=== PATIENT | female | born 1975 | race Caucasian/White ===

== ENCOUNTER → 2017-10-22 | Outpatient (CLI) | payer OTHER, BC ==
[2015-03-22 07:55] VITALS: BP 92/51
[~2017-10-22] MED LIST: DOCU-109 PO; GABA-585 PO; OMEP20CA9 PO
--- NOTE | 2017-10-22 16:50 | RAD ---
History: Mass right breast. Relative benefits risks and alternatives to the procedure were discussed and written informed consent was obtained. With sterile technique, local anesthesia and ultrasound guidance, percutaneous biopsy was performed with a 14-gauge needle and multiple passes were obtained through the target. A marker was placed, and post procedure CC and ML views were obtained. The procedure was well tolerated. Specimens were sent to pathology. The patient was sent home in good condition with written and verbal instructions. Impression: Status post ultrasound guided breast biopsy. Pathology is pending.
--- NOTE | 2017-10-23 17:02 | PATHOLOGY ---
PATHOLOGY REPORT * * * * * * * * FINAL DIAGNOSIS: Breast tissue, right breast mass needle biopsies: - Fibroadenoma. COMMENT: There is no evidence of malignancy. (JPM:ashley; 10/23/2017) REPORT ELECTRONICALLY SIGNED BY: Ricardo Jimenes M.D. DATE/TIME: 10/23/2017 17:01 * * * * * * * * GROSS PATHOLOGY: Received in formalin labeled "Abelardo Torres, right breast," are multiple needle cores of yellow-mckenzie fibrofatty tissue measuring 2.3 x 0.6 x 0.2 cm in aggregate dimensions. The tissue is submitted in its entirety in cassette A1 through A3. The cold ischemic time is 2 minutes. The total formalin fixation time is 9 hours and 35 minutes. (TSD; 10/22/2017) INITIAL CPT CODE(S): A; 17738 Professional services performed [place] [address] Technical services performed by [facility] at [address] [place] [address]. Dr. [place], [place] Radiology fax [phone] SPECIMEN(S) RECEIVED: A.Right breast mass @ 2 o'clock CLINICAL HISTORY: Right breast mass @ 2 o'clock PATIENT: ABELARDO TORRES /AGE: 806/06/1975 (Age: 42) PATIENT #: [id number] ALT CASE #: SPECIMEN COLLECTION DATE: 10/22/2017 SPECIMEN RECEIVED DATE: 10/22/2017 [facility] - [address] [place] [address] - PHONE: [phone] * * * END OF REPORT * * *
== END | disposition home or self-care (01) ==
LOC: US 13:00
PROVIDERS: ATTEND Family Medicine
DX: N63.10 Unspecified lump in the right breast, unspecified quadrant (principal)
CPT/HCPCS: 19081; 76942; 88305; C1713; G0206; 77065